=== PATIENT | male | born 1980 | race Caucasian/White ===

== ENCOUNTER 2019-06-28 09:39 | Emergency (ER) | payer MEDICAID, OTHER ==
[~2019-06-28] VITALS: Ht 175.3 cm; Wt 85.0 kg
[2019-06-28 11:00] LABS: BASOPHILS % 0.6 % (0.0-2.0); EOSINOPHILS % 3.3 % (0.0-5.0); HEMATOCRIT. 48.9 % (42.0-52.0); HEMOGLOBIN. 16.9 g/dL (14.0-18.0); MEAN CORPUSCULAR HEMOGLOBIN 29.2 pg (28.0-32.0); MEAN CORPUSCULAR VOLUME 84.5 fL (80.0-94.0); MEAN PLATELET VOLUME 8.6 fl (7.4-10.4); NEUTROPHILS % 63.1 % (40.0-76.0); PLATELET 207 x1000/uL (130-400); RED BLOOD CELL COUNT 5.79 mill/uL (4.7-6.1); RED CELL DISTRIBUTION WIDTH 13.7 % (11.6-14.6)
[2019-06-28 11:07] LABS: CHLORIDE 106 mEq/L (98-107)
[2019-06-28 11:08] LABS: PROTHROMBIN TIME 10.7 sec (9.6-11.0)
[2019-06-28 11:20] LABS: CLARITY URINE CLEAR (CLEAR); COLOR URINE YELLOW (YELLOW); KETONES URINE NEGATIVE (NEGATIVE); LEUKOCYTE ESTERASE URINE NEGATIVE (NEGATIVE); NITRITE URINE NEGATIVE (NEGATIVE); OCCULT BLOOD URINE NEGATIVE (NEGATIVE); PROTEIN URINE NEGATIVE (NEGATIVE); SPECIFIC GRAVITY URINE 1.009 (1.005-1.030)
[2019-06-28] MEDS ORDERED: HYDROCODONE/ACETAMINOPHEN 5/325MG TABLET PO ONE (11:45)
[2019-06-28] MEDS ORDERED: IOHEXOL-300 100 ML BOTTLE ONE (12:13)
[2019-06-28 12:55] VITALS: BP 105/58
== END 2019-06-28 13:32 | disposition home or self-care (01) ==
LOC: ER 09:39
DX: K92.2 Gastrointestinal hemorrhage, unspecified (principal)
CPT/HCPCS: 36415; 74177; 80053; 81003; 83690; 85025; 85610; 99284; Q9967

== ENCOUNTER 2024-10-31 15:17 | Emergency (ER) | payer MEDICAID ==
[~2024-10-31] VITALS: Ht 175.3 cm; Wt 84.0 kg
[2024-10-31 16:14] VITALS: O2SAT 98
[2024-10-31] MEDS: LIDOCAINE HCL/PF 1% 10 MG/ML 5ML VIAL INFIL ONE (19:30)
[2024-10-31] MEDS ORDERED: TETANUS, DIPHTHERIA, PERTUSSIS VAC/PF 0.5ML (>10YR OLD) IM ONE (19:30)
[2024-10-31] MEDS: BACITRACIN ZINC OINT UDPKT TOP ONE (20:53)
[2024-10-31] MEDS: IBUPROFEN 600MG TABLET PO ONE (20:54)
[2024-10-31] MEDS: MORPHINE SULFATE 4 MG/ML INJ (FOR IV/IM USE) IV ONE (21:35)
[2024-10-31] MEDS: CEFAZOLIN 1000MG PREMIX 50 ML IV ONE (21:35)
[2024-10-31] MEDS: TETANUS, DIPHTHERIA, PERTUSSIS VAC/PF 0.5ML (>10YR OLD) IM ONE (21:50)
[2024-10-31 22:16] LABS: BASOPHILS % 0.6 % (0.0-2.0); EOSINOPHILS % 4.4 % (0.0-5.0); HEMATOCRIT. 43.4 % (42.0-52.0); HEMOGLOBIN. 14.5 g/dL (14.0-18.0); LYMPHOCYTES % 33.9 % (20.0-50.0); MEAN CORPUSCULAR HEMOGLOBIN 29.4 pg (28.0-32.0); MEAN CORPUSCULAR HGB CONC 33.4 g/dL (31.0-37.0); MEAN PLATELET VOLUME 8.7 fl (7.4-10.4); NEUTROPHILS % 50.1 % (40.0-76.0); PLATELET 196 x1000/uL (130-400); RED BLOOD CELL COUNT 4.94 mill/uL (4.7-6.1); RED CELL DISTRIBUTION WIDTH 13.7 % (11.6-14.6); WHITE BLOOD COUNT 7.7 x1000/uL (4.5-11.0)
[2024-10-31 22:22] LABS: CHLORIDE 108 mEq/L (98-107); POTASSIUM 3.6 mEq/L (3.5-5.1); SODIUM 140 mEq/L (136-145)
[2024-10-31 22:23] LABS: CARBON DIOXIDE 21 mEq/L (21-32); PROTHROMBIN TIME 11.2 sec (9.6-11.0)
[2024-10-31 22:24] LABS: CALCIUM 9.5 mg/dL (8.7-10.4)
[2024-10-31 22:28] LABS: CREATININE 0.9 mg/dL (0.6-1.3); GLUCOSE 123 mg/dL (70-105); UREA NITROGEN BLOOD 9 mg/dL (9-23)
[2024-10-31] MEDS ORDERED: CEFP200T13 MT (22:48)
[2024-10-31] MEDS ORDERED: OXYC-100 MT (22:50)
[2024-10-31] MEDS ORDERED: IBUP-2029 MT (22:52)
[2024-10-31] MEDS ORDERED: BO1 TP (22:52)
[2024-10-31 23:00] VITALS: BP 108/75; PULSE 55; RESP 18; TEMP 37.16964; O2SAT 98
== END 2024-10-31 23:00 | disposition home or self-care (01) ==
LOC: ER 15:17
DX: S62.501B Fracture of unspecified phalanx of right thumb, initial encounter for open fracture (principal); Z91.52 Personal history of nonsuicidal self-harm; X58.XXXA Exposure to other specified factors, initial encounter; Y93.89 Activity, other specified; Y92.89 Other specified places as the place of occurrence of the external cause; Y99.8 Other external cause status
CPT/HCPCS: 80048; 85025; 85610; 86850; 86900; 86901; 36415; 73140; 90715; 29130; 90471; 96365; 96375; 99285; J0690; J3490; J2270; Z7610